=== PATIENT | female | born 1965 | race Caucasian/White ===

== ENCOUNTER → 2016-11-08 | Outpatient (REF) | payer OTHER | LOC: M LABDRAWC 11:07 | PROVIDERS: ATTEND Neurological Surgery | DX: M47.892 Other spondylosis, cervical region (principal) ==

== ENCOUNTER → 2016-11-12 | Outpatient (CLI) | payer OTHER ==
--- NOTE | 2016-11-14 11:34 | REP ---
MRI CERVICAL SPINE WITHOUT CONTRAST: CLINICAL HISTORY: Spondylosis, neck pain. TECHNIQUE: Standard sagittal and axial images provided. COMPARISON: No prior study. FINDINGS: Sagittal images show slight loss of cervical lordosis. There is very slight disc space narrowing at C5-6 and C6-7 with slight loss of disc water signal throughout. There is no compression deformity in the spine or marrow signal abnormality in the cervical and upper thoracic region. The craniocervical junction shows ample subarachnoid space. The cervical cord shows no syrinx, atrophy or any intrinsic signal abnormality of significance. At C2-3 through C4-5, there is no disc bulge or herniation and no spinal or foraminal stenosis. At C5-6, there is mild broad-based disc bulge thinning the ventral subarachnoid space but not causing cord compression. The foramina are adequate. At C6-7, there is a broad-based disc bulge abutting and flattening ventral cord surface. AP canal diameter in the midline is 7 mm representing stenosis. Foramina are adequate. At C7-T1, there is no disc bulge herniation and no spinal or foraminal stenosis. IMPRESSION: 1. Cervical spondylosis at C6-7 and C5-6 with disc bulges greater at C6-7 where it thins the ventral subarachnoid space and indents the ventral cord surface with AP canal diameter only 7 mm. 2. There is no intrinsic cord signal abnormality, syrinx, atrophy or other areas of spinal/foraminal stenosis. Signed by Zohaib Mueller MD 11/14/2016 02:23 P
--- NOTE | 2016-11-14 11:39 | REP ---
MRI LUMBAR SPINE WITHOUT CONTRAST: 11/12/2016. COMPARISON: 03/24/2015 CLINICAL HISTORY: Back pain, radicular symptoms left leg and foot. TECHNIQUE: Sagittal T1, T2 and STIR images with axial T1-T2 sequences provided. FINDINGS: There is decreased signal intensity at L3-4, L4-5 and lesser extent, the other lumbar levels similar to previous study. Disc height at L3-4 is diminished. The other disc heights are maintained. Vertebral body heights and marrow signal are normal throughout. The conus terminates at the T12-L1 level. At T11-12, T12-L1, L1-2 disc levels. There is no disc bulge or herniation and no spinal or foraminal stenosis. Minimal disc bulge diffusely at L2-3 ligamentum flavum hypertrophy and facet arthritis. Cross-sectional area of the canal was adequate. There is no foraminal encroachment. At L3-4, there is a mild broad-based disc bulge but more extensive ligamentum flavum and facet hypertrophy noted causing central canal stenosis as before. Foramina are adequate without compression of L3 nerve roots. At L4-L5, there is also a broad-based disc bulge with ligamentum flavum and facet hypertrophy unchanged and causing some central canal stenosis although mild. Foramina show no nerve root compression of the L4 roots. At L5-S1, small posterior osteophytic ridge with a minimal disc bulge centrally without central canal or foraminal stenosis noted. There is facet arthropathy noted at this level. Incidental note made of fluid collection either parapelvic cyst or hydronephrosis in lower pole of the kidneys, right greater than left but seen only in part and cannot separate out these possibilities. Renal ultrasound or other cross-sectional imaging of the kidneys recommended as we have no prior pertinent study for this possibility. IMPRESSION: 1. Lumbar spondylosis at L3-4 and L4-5 with central canal stenosis due to combined factors and stable. No foraminal encroachment at these levels. 2. Spondylosis and L2-3 and L5-S1 without central canal or foraminal stenosis. The other levels intact. 3. Bilateral lower pole kidney parapelvic cyst or hydronephrosis. I cannot differentiate these possibilities with only limited views of the kidneys. Further imaging is strongly recommended. Signed by Zohaib Mueller MD 11/14/2016 02:23 P
== END ==
LOC: M RAD 08:07
PROVIDERS: ATTEND Neurological Surgery
DX: M47.892 Other spondylosis, cervical region (principal); M47.896 Other spondylosis, lumbar region; M48.06 Spinal stenosis, lumbar region; R93.8 Abnormal findings on diagnostic imaging of other specified body structures

== ENCOUNTER → 2016-11-14 | Outpatient (CLI) | payer OTHER ==
--- NOTE | 2016-11-15 02:22 | REP ---
Clinical: Spondylosis . Technique: AP, lateral, flexion/extension bilateral oblique, and coned-down views. Findings: Alignment and lordosis is maintained. The vertebral bodies including transverse process and spinous processes are intact and normal. There is no evidence for acute fracture / compression injury or subluxation. No evidence for spondylolysis or spondylolisthesis. Multilevel hypertrophic facet changes at the L5-L1 level along with minimal disc space narrowing noted. Impression: Mild and likely age-related degenerative changes. No acute fracture / compression injury or subluxation. Signed by Brant Sandoval MD 11/15/2016 02:12 A
--- NOTE | 2016-11-15 02:23 | REP ---
Clinical: Spondylosis . Technique: AP, lateral, flexion/extension, bilateral oblique, and open-mouth views. Findings: Alignment and lordosis is maintained. There is no evidence for acute fracture / compression injury or subluxation. Age-related changes are appreciated without overt discogenic findings by radiographic evaluation. Oblique views demonstrate patent neural foramen. Open mouth view demonstrates normal C1-C2 articulation and odontoid process. Impression: Age-related changes. Signed by Brant Sandoval MD 11/15/2016 02:14 A
== END ==
LOC: M RAD 17:16
PROVIDERS: ATTEND Neurological Surgery
DX: M47.892 Other spondylosis, cervical region (principal); M47.896 Other spondylosis, lumbar region

== ENCOUNTER → 2016-11-14 | Outpatient (REF) | payer OTHER ==
[2016-11-14 13:57] LABS: BASO # 0.1 K/mm3 (0.0-0.2); BASO % 2.2 % (0.0-1.0); EOS # 0.1 K/mm3 (0.0-0.50); EOS % 1.8 % (0.0-3.0); LARGE UNSTAINED CELL # 0.1 K/mm3 (0.0-0.4); LARGE UNSTAINED CELL % 2.7 % (0.0-4.0); LYMPH # 1.4 K/mm3 (1.5-4.5); LYMPH % 29.8 % (24.0-44.0); MEAN CORPUSCULAR HEMOGLOBIN 28.8 pg (27.0-33.0); MEAN CORPUSCULAR HGB CONC 31.6 g/dl (32.0-36.5); MEAN CORPUSCULAR VOLUME 91.1 fl (80.0-96.0); MONO # 0.3 K/mm3 (0.0-0.8); MONO % 6.6 % (0.0-5.0); NEUTROPHILS # 2.5 K/mm3 (1.8-7.7); NEUTROPHILS % 56.9 % (36.0-66.0); PLATELET COUNT, AUTOMATED 212 k/mm3 (150-450); RED CELL DISTRIBUTION WIDTH 13.3 % (11.5-14.5); WHITE BLOOD COUNT 4.3 K/mm3 (4.0-10.0)
[2016-11-14 13:59] LABS: ALBUMIN 3.9 GM/DL (3.2-5.2); ALBUMIN/GLOBULIN RATIO 1.26 (1.00-1.93); ALKALINE PHOSPHATASE 107 U/L (45-117); ALT/SGPT 17 U/L (12-78); ANION GAP 8 MEQ/L (8-16); AST/SGOT 13 U/L (15-37); BILIRUBIN,TOTAL 0.3 MG/DL (0.2-1.0); BLOOD UREA NITROGEN 18 MG/DL (7-18); CALCIUM LEVEL 8.7 MG/DL (8.5-10.1); CARBON DIOXIDE LEVEL 30 MEQ/L (21-32); CHLORIDE LEVEL 106 MEQ/L (98-107); CREATININE FOR GFR 0.81 MG/DL (0.55-1.02); GLOMERULAR FILTRATION RATE > 60.0 (>51); GLUCOSE, FASTING 77 MG/DL (70-105); POTASSIUM SERUM 4.7 MEQ/L (3.5-5.1); SODIUM LEVEL 144 MEQ/L (136-145)
[2016-11-14 14:08] LABS: FOLATE > 24.0 NG/ML; VITAMIN B12 LEVEL 713 PG/ML
[2016-11-14 15:37] LABS: ERYTHROCYTE SEDIMENTATION RATE 5 mm/hr (0-30)
== END ==
LOC: M LABNEURO 12:56
PROVIDERS: ATTEND Psychiatry & Neurology Neurology
DX: G62.9 Polyneuropathy, unspecified (principal)

== ENCOUNTER → 2017-01-24 | Outpatient (CLI) | payer OTHER ==
[2017-01-24 20:33] LABS: ANION GAP 7 MEQ/L (8-16); BLOOD UREA NITROGEN 21 MG/DL (7-18); CALCIUM LEVEL 9.1 MG/DL (8.5-10.1); CARBON DIOXIDE LEVEL 29 MEQ/L (21-32); CHLORIDE LEVEL 102 MEQ/L (98-107); CREATININE FOR GFR 0.76 MG/DL (0.55-1.02); GLOMERULAR FILTRATION RATE > 60.0 (>51); GLUCOSE, FASTING 76 MG/DL (70-105); POTASSIUM SERUM 4.6 MEQ/L (3.5-5.1); SODIUM LEVEL 138 MEQ/L (136-145)
== END ==
LOC: M SMT 15:44
PROVIDERS: ATTEND Nurse Practitioner Women's Health
DX: N13.30 Unspecified hydronephrosis (principal)

== ENCOUNTER → 2017-02-14 | Outpatient (CLI) | payer OTHER ==
[~2017-02-14] MED LIST: ISOVUE-370 76% 100ML VIAL (Q9967) As Ordered ONE
--- NOTE | 2017-02-15 07:16 | REP ---
Clinical: Parapelvic cyst and/or hydronephrosis by limited lumbosacral spine MRI. Technique: Axial precontrast, arterial phase, and and delayed phase imaging of the abdomen along with contrast-enhanced portal venous phase of the abdomen and pelvis. Examination performed using 100 ml Isovue 370 intravenous contrast material. Coronal and sagittal re-formations obtained. Findings: Punctate, bilateral 1 mm nonobstructing intrarenal calculi are suggested on noncontrast imaging. The kidneys demonstrate symmetric normal enhancement patterns and excretion into the collecting system. No evidence for renal cyst obvious mass or hydroureteronephrosis. No perinephric fluid collections are identified. Bladder is unremarkable. Liver, spleen, pancreas, gallbladder, and bilateral adrenal glands are normal. The enteric system is without obstruction or acute inflammatory process. Pelvis demonstrates normal bladder and age-appropriate uterus/adnexa. No ascites. No free air. No adenopathy. Vasculature appears normal. Surrounding musculoskeletal structures are intact. Lung bases demonstrate mild pleural thickening/dependent changes in the right posterior lung base. Impression: 1. Punctate bilateral 1 mm nonobstructing intrarenal calculi. Otherwise relatively normal appearance of the kidneys/ureters and bladder. Correlation with urinalysis recommended. No evidence for cyst or hydronephrosis. 2. No further acute intra-abdominal or pelvic pathology appreciated. Signed by Brant Sandoval MD 02/15/2017 07:07 A
== END ==
LOC: M RAD 16:10
PROVIDERS: ATTEND Nurse Practitioner Women's Health
DX: N13.30 Unspecified hydronephrosis (principal); Q61.00 Congenital renal cyst, unspecified; N20.0 Calculus of kidney
CPT/HCPCS: 74178; Q9967

== ENCOUNTER → 2019-01-03 | Outpatient (REF) | payer OTHER ==
[2019-01-03 12:50] LABS: BASO # 0.1 10^3/uL (0.0-0.2); BASO % 1.5 % (0.0-1.0); EOS # 0.1 10^3/uL (0.0-0.50); EOS % 1.2 % (0.0-3.0); HEMATOCRIT 44.4 % (36.0-47.0); HEMOGLOBIN 14.3 g/dl (12.0-15.5); LYMPH # 1.4 10^3/uL (1.5-4.5); LYMPH % 35.6 % (24.0-44.0); MEAN CORPUSCULAR HEMOGLOBIN 29.5 pg (27.0-33.0); MEAN CORPUSCULAR HGB CONC 32.2 g/dl (32.0-36.5); MEAN CORPUSCULAR VOLUME 91.5 fl (80.0-96.0); MONO # 0.3 10^3/uL (0.0-0.8); MONO % 7.9 % (0.0-5.0); NEUTROPHILS # 2.2 10^3/uL (1.8-7.7); NEUTROPHILS % 53.3 % (36.0-66.0); PLATELET COUNT, AUTOMATED 236 10^3/uL (150-450); RED BLOOD COUNT 4.85 10^6/uL (4.00-5.40)
[2019-01-03 13:16] LABS: BLOOD UREA NITROGEN 14 MG/DL (7-18); CALCIUM LEVEL 8.7 MG/DL (8.5-10.1); CARBON DIOXIDE LEVEL 29 MEQ/L (21-32); CHLORIDE LEVEL 106 MEQ/L (98-107); FREE T4 1.29 NG/DL (0.76-1.46); GLOMERULAR FILTRATION RATE > 60.0 (>51); GLUCOSE, FASTING 90 MG/DL (70-100); POTASSIUM SERUM 4.2 MEQ/L (3.5-5.1); SODIUM LEVEL 141 MEQ/L (136-145)
== END ==
LOC: M LABDRAW1 11:25
PROVIDERS: ATTEND Nurse Practitioner Family
DX: E89.0 Postprocedural hypothyroidism (principal); R53.83 Other fatigue

== ENCOUNTER → 2021-10-20 | Outpatient (REF) | LOC: M LABSMTC 10:17 | PROVIDERS: ATTEND Pediatrics | DX: Z11.52 Encounter for screening for COVID-19 (principal); Z20.822 Contact with and (suspected) exposure to COVID-19 ==

== ENCOUNTER → 2022-06-13 | Outpatient (CLI) | payer OTHER | LOC: M SOG 14:19 | PROVIDERS: ATTEND Orthopaedic Surgery Hand Surgery | DX: G56.03 Carpal tunnel syndrome, bilateral upper limbs (principal) ==

== ENCOUNTER → 2022-08-03 | Outpatient (CLI) | payer OTHER ==
[~2022-08-03] MED LIST changes: +GNP250TA9 PO; -ISOVUE-370 76% 100ML VIAL (Q9967) As Ordered ONE; +OYST1TAB PO; +PROBCAP14 PO; +SYNT88TA2; +VITATAB47 PO; +tumeric
== END ==
LOC: M LABSMTC 09:44
PROVIDERS: ATTEND Anesthesiology
DX: Z01.818 Encounter for other preprocedural examination (principal); Z11.52 Encounter for screening for COVID-19

== ENCOUNTER 2022-08-08 05:58 | Day surgery (SDC) | payer OTHER ==
[~2022-08-08] VITALS: Ht 160 cm; Wt 84.4 kg
[2022-08-08] MEDS ORDERED: LIDOCAINE W/EPINEPHRINE 1% 20ML VIAL XX ONE (06:00)
[2022-08-08] MEDS ORDERED: SODIUM BICARBONATE 8.4% INJ 50MEQ 50 ML VIAL XX ONE (06:00)
[2022-08-08] MEDS ORDERED: BUPIVACAINE HCL 0.5% 30ML VIAL As Ordered ONE (07:24)
[2022-08-08] MEDS ORDERED: LIDOCAINE 1% MDV 20ML VIAL As Ordered ONE (07:24)
[2022-08-08] MEDS ORDERED: BACITRACIN OINTMENT 30GM TUBE As Ordered ONE (08:00)
[2022-08-08 08:10] VITALS: BP 131/58
== END 2022-08-08 08:40 | disposition home or self-care (01) ==
LOC: M SDC 05:58
PROVIDERS: ATTEND Orthopaedic Surgery Hand Surgery
DX: M65.332 Trigger finger, left middle finger (principal); Z88.2 Allergy status to sulfonamides

== ENCOUNTER → 2024-05-13 | Outpatient (CLI) | payer OTHER | LOC: M LAB 15:22 | PROVIDERS: ATTEND Nurse Practitioner Family | DX: E89.0 Postprocedural hypothyroidism (principal) ==

== ENCOUNTER → 2024-11-06 | Outpatient (CLI) | payer OTHER | LOC: M PLAIMG 14:46 | PROVIDERS: ATTEND Physician Assistant Medical | DX: H93.A3 Pulsatile tinnitus, bilateral (principal); R90.82 White matter disease, unspecified ==